=== PATIENT | female | born 1985 | race Caucasian/White ===

== ENCOUNTER 2016-11-14 20:01 | Emergency (ER) | payer SELFPAY ==
[2016-11-14] MEDS ORDERED: ONDANSETRON 4 MG TAB.RAPDIS PO ONE (20:21)
[2016-11-14] MEDS ORDERED: MORPHINE SULFATE 4 MG/ML SYRG IM ONE (20:21)
[2016-11-14] MEDS ORDERED: ONDANSETRON 4 MG TAB.RAPDIS ONE (20:22)
[2016-11-14] MEDS ORDERED: MORPHINE SULFATE 4 MG/ML SYRG ONE (20:22)
--- NOTE | 2016-11-14 20:32 | ERNOTE ---
Lower Extremity HPI - General Lower Extremities Pain: leg: right Time Seen by Provider: 11/14/16 20:04 Source: patient, family - Immun/Allergies/Home Medications Immunizations: IMMUNIZATION HX Immunizations Up to Date Yes History of Influenza Vaccine No Hx Pneumococcal Vaccination No Allergies/Adverse Reactions: Allergies Allergy/AdvReac Type Severity Reaction Status Date / Time No Known Drug Allergies Allergy Verified 11/14/16 20:14 Home Medications: HOME MEDICATIONS Gabapentin [Neurontin] 600 mg PO BID 11/14/16 [Last Taken Unknown] Insul NPH Hu Rec/Ins Rg Hu Rec [Novolin 70/30 100U/ml] 15 units SQ TID 11/14/16 [Last Taken Unknown] metFORMIN HCL [Glucophage] 1,000 mg PO BIDWM 11/14/16 [Last Taken Unknown] oxyCODONE HCL/ACETAMINOPHEN [Percocet 5 MG/325 MG] 1 tab PO Q4H PRN #10 tab 02/18 [Last Taken Unknown] - History of Present Illness Narrative: Patient and 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 Last night while laying in be she started to have sudden severe pain in her right leg below the knee. It is circumferential, constant, and increasing in severity. She denies any other symptoms, has taken large amounts of aleve and ibuprofen without relieve. She was diagnosed five months ago with diabetes as well as neuropathy which she is taking gabapentin for Date (Duration): 11/13/16 Time (Timing): 21:30 Method of Injury: Reports: no apparent injury Modifying Factors - (Worsens): Reports: other - cold Associated Symptoms: Denies: dizzy/light headedness, sensory loss, chest pain, vomiting/diarrhea, bowel/bladder problems Other Injuries: Reports: none Review of Systems - Review of Systems Constitutional: Absent: recent illness, fever, malaise ENT: Absent: nose congestion, sore throat Respiratory: Absent: shortness of breath, cough Cardiology: Absent: chest pain Gastrointestinal/Abdominal: Present: diarrhea - loose BM for three days, x3 today. Absent: nausea, vomiting, abdominal pain Genitourinary: Present: no symptoms reported. Absent: frequency, dysuria Musculoskeletal: Absent: back pain, joint pain Skin: Absent: rash Neurological: Absent: weakness - Patient's Past Medical History Patient History - Medical: Diabetes Type 2 Insulin Dependent, Kidney stone, Other - PCOS Patient History - Cardiac/Respiratory: No pertinent hx Patient History - Cancer: No Hx of Cancer Patient History - Surgical Procedures: Other - wisdon teeth Patient History - Other: None LMP (females 10-50): two weeks ago, irregular - Social History Living Situations: home Psych History: No pertinent hx Smoking Status: Current every day smoker Cigarettes Packs Per Day: 0.5 Alcohol Use: sober Drug Use: none - Immunizations Immunizations Up to Date: Yes Hx Pneumococcal Vaccination: No History of Influenza Vaccine: No Physical Exam - Physical Exam General Appearance: Present: wd/wn, alert, mild distress Respiratory: Present: no respiratory distress, normal breath sounds, chest nontender, lungs clear Cardiovascular/Chest: Present: regular rate, rhythm, no murmur Extremity Exam: Present: normal inspection, other - very tender to touch below knee only, feels cooler than left leg, palpable pulses, decreased strength (due to pain?). Absent: joint redness, joint swelling Neurological Exam: Present: alert, oriented Skin Exam: Present: normal color ED Progress - Results and Orders Patient's Lab Results:: I have reviewed the patient's lab results. - Vital Signs Patient's Vital Signs:: I have reviewed the patient's vital signs. Vital Signs: Vital Signs 11/14/16 20:06 Temperature 36.3 C L Pulse Rate 123 H Respiratory 18 Rate Blood Pressure 165/52 O2 Sat by Pulse 99 Oximetry - CT/Ultrasound CT/Ultrasound Narrative: arterial doppler: no acute findings venous doppler: no acute findings - Progress/Reassessment Chief Complaint: Lower Extremity Pain/ Injury Progress Note-Subjective: 11/14/16 21:51 no significant pain relieve after morphine 4mg, waiting u/s results 11/14/16 22:34 pain better after percocet, discussed test results Departure Clinical Impression: Neuropathy - Departure Disposition: Home self-care Condition: Good Instructions: Neuropathic Pain Additional Instructions: you did not have any blood clots neither in your veins nor arteries, increase your gabapentin to three times a day, take the percocet at needed and call your doctor for follow up Prescriptions: oxyCODONE HCL/ACETAMINOPHEN [Percocet 5 MG/325 MG] 1 tab PO Q4H PRN #10 tab PRN Reason: Pain
[2016-11-14 20:44] LABS: Hematocrit 41.3 % (37.0-47.0); Hemoglobin 14.2 gm/dL (12.5-16.0); Mean Cell Volume 86.2 fl (78-100); Mean Corpuscular Hemoglobin 29.6 pg (27-31); Mean Corpuscular Hgb Conc 34.4 g/dl (32-36); Mean Platelet Volume 9.2 fl (6.0-9.5); Platelet Count 403 K/mm3 (150-450); Red Blood Count 4.79 M/mm3 (4.2-5.4); Red Cell Distribution Width 13.3 % (11.5-14.0); White Blood Count 13.2 K/mm3 (4.0-10.5)
[2016-11-14 20:46] LABS: Total Cells Counted 100
[2016-11-14 20:59] LABS: Hemoglobin A1C 8.3 % (4.00-6.0)
[2016-11-14 21:01] LABS: Albumin * 3.4 gm/dl (3.4-5.0); Anion Gap 19.3 mmol/L (6.8-13.8); BUN/Creatinine Ratio 18.8 (9.0-21.6); Bilirubin, Total 0.2 mg/dL (0.0-1.1); Ca. Corrected For Albumin 9.1 mg/dL (8.4-10.2); Calcium * 8.9 mg/dL (7.9-10.9); Carbon Dioxide 20.6 mmol/L (24-32.6); Potassium 3.9 mmol/L (3.4-4.6); Total Protein 7.5 gm/dL (6.2-8.2)
[2016-11-14 21:08] LABS: Atypical (Reactive) Lymph 2 % (0-2); Basophil 1 % (0-1); Eosinophil 2 % (0-3); Lymphocyte 39 % (20-51); Monocyte 3 % (0-9); Neutrophil 53 % (42-75); Platelet Estimate Normal (NORMAL); RBC Morphology Normal (NORMAL)
[2016-11-14] MEDS ORDERED: oxyCODONE HCL/ACETAMINOPHEN 1 TAB TABLET ONE (21:51)
[2016-11-14] MEDS ORDERED: oxyCODONE HCL/ACETAMINOPHEN 1 TAB TABLET PO ONE (21:51)
[2016-11-14 22:37] VITALS: BP 141/97
== END 2016-11-14 22:43 | disposition home or self-care (01) ==
LOC: ER 20:01
DX: G62.9 Polyneuropathy, unspecified (principal); E11.9 Type 2 diabetes mellitus without complications; Z79.4 Long term (current) use of insulin; F17.200 Nicotine dependence, unspecified, uncomplicated